=== PATIENT | female | born 1940 | race Asian ===

== ENCOUNTER → 2016-07-23 | Outpatient (CLI) | payer MEDICARE, OTHER ==
[~2016-07-23] MED LIST: ALLO100T PO; ASPI-825 PO; ATOR10TA69 PO; CA ZINC PO; CLON0.2T PO; COLC0.6T69 PO; ESOM20CA31 PO; FERR-63 PO; FEXO-117 PO; GLUC-165 PO; INDO25 PO; MAXZ25 PO; METO-323 PO; MULT-1259 PO; NAPR375T PO; POTA-9 PO
== END | disposition home or self-care (01) ==
LOC: RADPV 10:26
PROVIDERS: ATTEND Orthopaedic Surgery
DX: M17.0 Bilateral primary osteoarthritis of knee (principal)

== ENCOUNTER → 2019-06-27 | Outpatient (CLI) | payer MEDICARE, OTHER ==
[~2019-06-27] MED LIST changes: +AMLO5TAB66 PO; -ATOR10TA69 PO; +ATOR80TA PO; -CA ZINC PO; +CIP250 PO; -CLON0.2T PO; -COLC0.6T69 PO; +COLC0.6T73 PO; -ESOM20CA31 PO; -FEXO-117 PO; -GLUC-165 PO; +INDO-16 PO; -INDO25 PO; -MAXZ25 PO; -METO-323 PO; +METO50 PO; -NAPR375T PO; -POTA-9 PO; +POTA99TA15 PO; +TELM80TA2 PO; +TRIA1TAB93 PO; +VITA100024 PO
== END | disposition home or self-care (01) ==
LOC: RADPV 10:50
PROVIDERS: ATTEND Internal Medicine
DX: M19.041 Primary osteoarthritis, right hand (principal); M19.042 Primary osteoarthritis, left hand; M11.232 Other chondrocalcinosis, left wrist; M79.89 Other specified soft tissue disorders; R20.0 Anesthesia of skin; Z79.899 Other long term (current) drug therapy